=== PATIENT | male | born 1980 | race Caucasian/White ===

== ENCOUNTER 2016-04-22 11:12 | Emergency (ER) | payer OTHER ==
[2016-04-22] MEDS ORDERED: Metoclopramide IV* 5 MG/ML 2 ML VIAL IV ONE (12:06)
[2016-04-22] MEDS ORDERED: diPHENhydraMINE IV* 50 MG/ML 1 ml VIAL (BENADRYL) IV ONE (12:06)
[2016-04-22] MEDS: NS 0.9% 1000 ML* 1,000 ML IV ONE ×2 (12:39→14:58)
--- NOTE | 2016-04-22 13:20 | RAD ---
Indication: Neck injury. CT of the cervical spine was obtained in the axial plane. Sagittal and coronal reconstructed images were obtained. The skull base demonstrates mastoid air cells to be well aerated. No evidence of abnormal fluid is noted. The C1 ring is intact. There is no evidence of fracture. The atlantoaxial joint is otherwise unremarkable. No fracture is noted. The vertebral bodies appear normal in height. No evidence of fracture is noted. At C2-C3, C3-C4, C4-C5, C5-C6, C6-C7 there is no obvious disc protrusion. All the intervertebral foramen appear patent. Due to technical factors and machine malfunction this C7-T1 disc space was not visualized. Clinical correlation is suggested. IMPRESSION: No fracture of the cervical spine is noted. Due to technical limitations and machine malfunction the C7-T1 disc space was not visualized. Clinical correlation is suggested to see if further imaging is required.
[2016-04-22] MEDS ORDERED: Magnesium Sulfate 1 GM IV* 1 GM/100 ML BAG IV ONE (14:16)
--- NOTE | 2016-04-22 14:33 | RAD ---
Indication: Headache. CT of the brain was performed without IV contrast. Ventricular structures are midline. No midline shift is noted. The extra-axial spaces are unremarkable. There is no evidence of intracranial mass or hemorrhage. No other high or low density lesions are identified. Mastoid air cells and paranasal sinuses are otherwise unremarkable. IMPRESSION: NO INTRACRANIAL MASS OR HEMORRHAGE IS NOTED.
[2016-04-22] MEDS ORDERED: Ketorolac INJ* 30 MG/ML 1 ML VIAL IV ONE (14:52)
[2016-04-22 15:39] LABS: Hematocrit 42 % (42-52); Hemoglobin 14.2 g/dl (14.0-18.0); Mean Corpuscular HGB Conc 33 g/dl (31-36); Mean Corpuscular Hemoglobin 30 pg (27-31); Mean Corpuscular Volume 88 fL (80-94); Mean Platelet Volume 12 um3 (7.4-10.4); Red Blood Count 4.81 10^6/ul (4.0-5.4); Red Cell Distribution Width 13 % (10.5-15); White Blood Count 12.2 10^3/ul (3.5-10.8)
[2016-04-22] MEDS ORDERED: SUMAtriptan TAB* 100 MG PO ONE (15:41)
--- NOTE | 2016-04-22 16:10 | ED ---
Headache - HPI Summary HPI Summary: Patient presents with a headache for 5 days that he believes has caused him to have sciatica. He has a history of sciatica and thinks there is a correlation between the two. He denies history of headaches, but the ORDOÑEZ he has is persistent. He has throbbing pain that worsens when he moves. He denies history of hypertension. No fevers, chills, neck pain, vision changes, weakness, N/T, sore throat, or viral illness. His appetite is intact. No N/V/D or inability to ambulate, urinate or defecate. - History Of Current Complaint Chief Complaint: EDHeadache Stated Complaint: HEADACHE Time Seen by Provider: 04/22/16 11:30 Hx Obtained From: Patient Onset/Duration: Gradual Onset, Started days ago - 5, Still Present Initially Headache Was: Severe Currently Pain Is: Severe Timing: Constant Character: Sharp, Throbbing, Pressure Location of Headache: Diffuse Aggravating Factor: Exertion, Position Change Allevating Factors: Nothing Associated Signs And Symptoms: Negative - Risk Factors Meningitis Risk Factors: Communal Living SDH Risk Factors: Male Temporal Arteritis Risk Factors: - Allergies/Home Medications Allergies/Adverse Reactions: Allergies Allergy/AdvReac Type Severity Reaction Status Date / Time No Known Allergies Allergy Verified 05/10/15 10:25 PMH/Surg Hx/FS Hx/Imm Hx Previously Healthy: Yes Respiratory History: Reports: Hx Asthma GI History: Reports: Other GI Disorders - hep C, now post treatment Infectious Disease History: Yes Infectious Disease History: Denies: Traveled Outside the [place] in Last 30 Days - Family History Known Family History: Positive: None - Social History Occupation: Unemployed Lives: [facility] Alcohol Use: None Substance Use Type: Reports: None Substance Use Comment - Amount & Last Used: HX OF DRUG USE Smoking Status (MU): Heavy Every Day Tobacco Smoker Cessation Counseling: Patient Advised to Stop Review of Systems Negative: Fever, Chills, Fatigue Negative: Blurred Vision, Diplopia, Drainage, Erythema Negative: Sore Throat, Ear Ache, Nasal Discharge Negative: Chest Pain Negative: Shortness Of Breath Negative: Vomiting, Diarrhea, Nausea Negative: Myalgia Positive: Headache. Negative: Weakness, Paresthesia, Numbness, Syncope, Slurred Speech All Other Systems Reviewed And Are Negative: Yes Physical Exam Triage Information Reviewed: Yes Vital Signs On Initial Exam: Initial Vitals Temp Pulse Resp BP Pulse Ox 98.3 F 57 16 145/87 99 04/22/16 11:14 04/22/16 11:14 04/22/16 11:14 04/22/16 11:14 04/22/16 11:14 Vital Signs Reviewed: Yes Appearance: Positive: Well-Appearing, Well-Nourished, Pain Distress Skin: Positive: Warm, Skin Color Reflects Adequate Perfusion, Dry, Soft Head/Face: Positive: Normal Head/Face Inspection. Negative: Temporal Artery Tenderness Eyes: Positive: EOMI, ANTHONY, Conjunctiva Clear ENT: Positive: Hearing grossly normal, Pharynx normal, TMs normal Neck: Positive: Supple, Nontender, No Lymphadenopathy. Negative: Nuchal Rigidity Respiratory/Lung Sounds: Positive: Breath Sounds Present Cardiovascular: Positive: Bradycardia Musculoskeletal: Positive: Strength/ROM Intact. Negative: Edema Left, Edema Right Neurological: Positive: Sensory/Motor Intact, Alert, Oriented to Person Place, Time, CN Intact II-III, NV Bundle Intact Distally, Normal Gait, Facial Symmetry. Negative: Expressive Aphasia, Slurred Speech Psychiatric: Positive: Normal AVPU Assessment: Alert - Marva Coma Scale Coma Scale Total: 15 Diagnostics - Vital Signs Vital Signs Temp Pulse Resp BP Pulse Ox 04/22/16 16:00 59 98 04/22/16 15:30 56 132/63 98 04/22/16 15:00 56 140/115 98 04/22/16 14:30 55 135/81 98 04/22/16 14:00 49 131/66 97 04/22/16 13:30 61 140/81 98 04/22/16 13:00 64 98 04/22/16 12:57 67 96 04/22/16 11:14 98.3 F 57 16 145/87 99 - Laboratory Lab Results: Lab Results 04/22/16 Range/Units 12:42 WBC 12.2 H (3.5-10.8) 10^3/ul RBC 4.81 (4.0-5.4) 10^6/ul Hgb 14.2 (14.0-18.0) g/dl Hct 42 (42-52) % MCV 88 (80-94) fL MCH 30 (27-31) pg MCHC 33 (31-36) g/dl RDW 13 (10.5-15) % Plt Count 122 L (150-450) 10^3/ul MPV 12 H (7.4-10.4) um3 Neut % (Auto) 81.6 (38-83) % Lymph % (Auto) 12.5 L (25-47) % [place] % (Auto) 5.1 (1-9) % Eos % (Auto) 0.5 (0-6) % Baso % (Auto) 0.3 (0-2) % Absolute Neuts (auto) 9.9 H (1.5-7.7) 10^3/ul Absolute Lymphs (auto) 1.5 (1.0-4.8) 10^3/ul Absolute Monos (auto) 0.6 (0-0.8) 10^3/ul Absolute Eos (auto) 0.1 (0-0.6) 10^3/ul Absolute Basos (auto) 0 (0-0.2) 10^3/ul Absolute Nucleated RBC 0 10^3/ul Nucleated RBC % 0 Result Diagrams: 04/22/16 12:42 04/22/16 12:42 Lab Statement: Any lab studies that have been ordered have been reviewed, and results considered in the medical decision making process. - CT No standard instances CT Interpretation: No Acute Changes CT Interpretation Completed By: Radiologist - CT brain and CT cervical spine negative for acute changes. Re-Evaluation - Re-Evaluation First Eval Re-Evaluation Time: 13:30 Change: Unchanged Second Eval Re-Evaluation Time: 14:50 Change: Unchanged Third Eval Re-Evaluation Time: 16:00 Change: Improved Comment: Patient has eaten and had damon kvng without nausea or vomiting. His pain has not worsened. He has been up to the bathroom without difficulty. Headache Course/Dx - Diagnoses Differential Diagnosis/HQI/PQRI: Epidural Hematoma, Subdural Hematoma, Meningitis, Sinus Headache, Temporal Arteritis, Tension Headache Provider Diagnoses: Tension headache - Physician Notifications Discussed Care Of Patient With: Dr. Arechiga, emergency department attending. Discharge - Discharge Plan Condition: Stable Disposition: HOME Prescriptions: SUMAtriptan TAB* [Imitrex TAB*] 100 mg PO SEE INSTRUCTIONS PRN #4 tab PRN Reason: Headache Patient Education Materials: Tension Headache (ED) Additional Instructions: Use the medication provided as needed for headache. Return to the emergency department if symptoms worsen.
[2016-04-22 16:15] LABS: Albumin 3.8 g/dL (3.2-5.2); BUN/Creatinine Ratio 8.7 (8-20); C Reactive Protein 14.25 mg/L (< 5.00); Calcium 9.4 mg/dL (8.6-10.3); EGFR African American 105.1 (>60); EGFR Non-African American 81.7 (>60); Globulin 2.8 g/dL (2-4); Potassium 3.9 mmol/L (3.5-5.0); Total Bilirubin 0.6 mg/dL (0.2-1.0); Total Protein 6.6 g/dL (6.4-8.9)
[2016-04-22 17:29] VITALS: BP 141/84
== END 2016-04-22 16:20 | disposition home or self-care (01) ==
LOC: ED 11:12
DX: G44.209 Tension-type headache, unspecified, not intractable (principal); F17.210 Nicotine dependence, cigarettes, uncomplicated
CPT/HCPCS: 36415; 70450; 72125; 80053; 85025; 86140; 96374; 99284; A9270-GY; J1200; J1885; J2765; J3475